=== PATIENT | male | born 1990 | race Caucasian/White ===

== ENCOUNTER 2020-10-03 10:42 | Emergency (ER) | payer OTHER ==
[~2020-10-03] VITALS: Ht 188 cm; Wt 66.0 kg
[~2020-10-03 10:42] MED LIST: ALBU2.5V8 IH
[2020-10-03 10:58] VITALS: BP 118/89
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
== END 2020-10-03 12:06 | disposition home or self-care (01) ==
LOC: ER 10:42
DX: R51.9 Headache, unspecified (principal); J45.909 Unspecified asthma, uncomplicated; F17.210 Nicotine dependence, cigarettes, uncomplicated; V98.8XXA Other specified transport accidents, initial encounter; Y93.89 Activity, other specified; Y92.89 Other specified places as the place of occurrence of the external cause; Y99.8 Other external cause status
CPT/HCPCS: 70450; 99284